=== PATIENT | female | born 1955 | race Native Hawaiian/Other Pacific Islander ===

== ENCOUNTER 2020-12-16 16:21 | Outpatient (CLI) | payer OTHER ==
[2020-12-16 17:32] LABS: PLATELET COUNT 241 K/uL (152-353)
[2020-12-16 17:37] LABS: POTASSIUM 4.6 mmol/L (3.6-5.2)
== END 2020-12-16 23:27 | disposition home or self-care (01) ==
LOC: LAB 16:21
PROVIDERS: ATTEND Nurse Practitioner Family
DX: Z00.00 Encounter for general adult medical examination without abnormal findings (principal); I10 Essential (primary) hypertension; E78.49 Other hyperlipidemia; J44.9 Chronic obstructive pulmonary disease, unspecified; R05 Cough; Z79.899 Other long term (current) drug therapy
CPT/HCPCS: 80053; 80061; 82306; 82607; 83036; 84439; 84443; 85027

== ENCOUNTER 2021-03-10 18:43 | Outpatient (CLI) | payer OTHER | END 2021-03-10 21:14 | disposition home or self-care (01) | LOC: LAB 18:43 | PROVIDERS: ATTEND Nurse Practitioner Family | DX: I10 Essential (primary) hypertension (principal); E78.49 Other hyperlipidemia; J44.9 Chronic obstructive pulmonary disease, unspecified; E55.9 Vitamin D deficiency, unspecified; E53.8 Deficiency of other specified B group vitamins; M85.80 Other specified disorders of bone density and structure, unspecified site; R05 Cough | CPT/HCPCS: 80061; 82306 ==

== ENCOUNTER 2021-07-30 11:36 | Outpatient (CLI) | payer OTHER | END 2021-07-30 22:15 | disposition home or self-care (01) | LOC: LAB 11:36 | PROVIDERS: ATTEND Nurse Practitioner Family | DX: R05 Cough (principal); J34.89 Other specified disorders of nose and nasal sinuses; J02.9 Acute pharyngitis, unspecified; H92.09 Otalgia, unspecified ear; R11.0 Nausea | CPT/HCPCS: 87635; U0003 ==